=== PATIENT | female | born 1995 | race Caucasian/White ===

== ENCOUNTER 2020-05-30 07:40 | Emergency (ER) | payer OTHER, SELFPAY ==
[2020-05-30] VITALS (7 sets, daily range): BP systolic 113–146; BP diastolic 64–79; PULSE 58–74; RESP 14–20; TEMP 36.9; O2SAT 100
--- NOTE | ~2020-05-30 | XR_ITS ---
EXAMINATION: XR chest 1V portable EXAM DATE: 05/30/2020 08:29 INDICATION: Palpitations. TECHNIQUE: Portable AP frontal chest x-ray was obtained. There is no prior study for comparison. FINDINGS: The lungs are clear. There are no pleural effusions. The cardiomediastinal silhouette is within normal limits. There is no pneumothorax suspected. The bones and soft tissues are unremarkab le. IMPRESSION: No acute cardiopulmonary findings. Reviewed, dictated and finalized at location A. ETIC HEALER
--- NOTE | 2020-05-30 07:57 | ECG_ITS ---
Measurements Intervals [place] Rate: 68 P: 59 AK: 156 QRS: 71 QRSD: 100 T: 29 QT: 385 QTc: 410 Interpretive Statements SINUS RHYTHM INCOMPLETE RIGHT BUNDLE BRANCH BLOCK DELAYED PRECORDIAL R/S TRANSITION BASELINE ARTIFACT- I, II, III, V3 BORDERLINE ECG Electronically Signed On 05-30-2020 7:59:17 TRANSPORTATION CLERK by John Fernandez D.O.
--- NOTE | 2020-05-30 07:57 | ED.CHESTPAIN ---
HPI - Chest Pain General Chief Complaint: Chest Pain Stated Complaint: sob/+covid on 05/20 Time Seen by Provider: 05/30/20 07:45 Source: patient Mode of arrival: ambulatory Limitations: no limitations History of Present Illness HPI narrative: This patient is a 25 year old female who presents for evaluation of heart racing and chest pain. She states she was found to be positive for COVID 19 on 05/20/20. She states she has been doing well, but 2 days ago she started feeling chest tightness. This chest tightness was constant but is resolved. She states she was also having intermittent migraine headaches. She took excederin last night for her headache, and she started having a feeling of heart racing. She checked her heart rate with her smart watch and her heart rate was normal. She continued to feel sensation of heart racing so she came to the ER. She denies chest pain or headache currently. She denies leg swelling or calf pain. She does not take control. Related Data Home Medications Medication Instructions Recorded Confirmed No Home Medications 05/30/20 05/30/20 Allergies Allergy/AdvReac Type Severity Reaction Status Date / Time Penicillins Allergy Hives Verified 05/30/20 07:57 Review of Systems Review of Systems: All systems reviewed & are unremarkable except as noted in HPI and below Constitutional: Constitutional: Denies chills and Denies fever(s) Cardiovascular: Cardiovascular: Reports chest pain and Reports rapid heart rate Respiratory: Respiratory: Denies cough and Reports dyspnea Gastrointestinal: Gastrointestinal: Denies abdominal pain, Denies nausea and Denies vomiting Neurologic: Denies headache(s), Denies focal weakness and Denies numbness Psychiatric: Psychiatric: Reports anxiety PMFSH Past Medical History Medical History (Updated 05/30/20 @ 09:18 by Blanca Medel MD) Patient denies medical problems Surgical History Surgical History (Updated 05/30/20 @ 07:58 by Blanca Medel MD) No pertinent past surgical history Social History Social History (Updated 05/30/20 @ 07:58 by Blanca Medel MD) Smoking status: Never smoker Exam Narrative: Exam Narrative: GENERAL: Well-appearing, well-nourished, and in no acute distress. HEAD: Normocephalic, atraumatic EYES: PERRLA and EOMI, conjunctiva clear without discharge THROAT:Mucous membranes moist, Oropharynx normal without erythema, exudate, peritonsillar swelling or fluctuance NECK: Supple, without lymphadenopathy or mass RESPIRATORY: No respiratory distress, Airway patent, Respirations non-labored, Clear to auscultation without rales, rhonchi or wheeze HEART: Regular rate and rhythm. No murmur heard. Normal peripheral pulses. ABDOMEN: Soft, nontender, nondistended, normal active bowel sounds. No masses. No rebound or guarding, No organomegaly. EXTREMITIES: No edema, normal strength with full range of motion. SKIN: Warm, dry, normal color without rash NEURO: Alert and oriented x3. CN 2-12 grossly intact. No focal deficits. PSYCH: Normal mood and affect. Course Reevaluation(s) Reevaluation #1: I have discussed with patient labs are normal. Her vitals have been unremarkable. She has no further questions before discharge. Date: 05/30/20 Time: 09:16 Vital Signs Vital signs: Vital Signs Pulse Rate 62 05/30/20 07:49 Respiratory Rate 20 05/30/20 07:49 Pulse Oximetry 100 05/30/20 07:49 Temperature 98.4 F 05/30/20 07:55 Pulse Rate 74 05/30/20 09:31 Respiratory Rate 20 05/30/20 09:31 Blood Pressure 113/64 05/30/20 09:31 Pulse Oximetry 100 05/30/20 09:31 MDM - Chest Pain Lab Data Attestation: I reviewed the patient's lab results. Result diagrams: 05/30/20 08:03 05/30/20 08:03 Labs: Lab Results 05/30/20 05/30/20 05/30/20 Range/Units 08:03 08:03 08:03 WBC 4.8 (4.5-10.0) K/mm3 RBC 4.66 (4.2-5.4) M/mm3 Hgb 14.5 (1
[2020-05-30 08:11] LABS: Basophils Percent Auto 0.2 % (0.2-1.2); Eosinophils Percent Auto 0.8 % (0-4.4); Hematocrit 41.6 % (37.0-47.0); Hemoglobin 14.5 g/dL (12.0-15.0); Immature Granulocyte Absolute 0.01 K/mm3 (0.00-0.031); Immature Granulocyte Percent A 0.2 % (0-0.5); Lymphocytes Absolute Auto 1.71 K/mm3 (0.9-3.2); Lymphocytes Percent Auto 35.8 % (18.3-44.2); Mean Corpuscular HGB Conc 34.9 g/dl (32-36); Mean Corpuscular Hemoglobin 31.1 pg (26-34); Mean Corpuscular Volume 89.3 fl (80-100); Mean Platelet Volume 9.8 fl (7.4-10.4); Monocytes Absolute Auto 0.5 K/mm3 (0.1-0.6); Monocytes Percent Auto 11.3 % (2.6-8.5); Neutrophils Absolute Auto 2.5 K/mm3 (1.3-6.7); Neutrophils Percent Auto 51.7 % (45.5-73.1); Platelet Count Result 225 k/mm3 (150-375); Red Blood Count 4.66 M/mm3 (4.2-5.4); Red Cell Distribution Width 12.2 % (11.5-14.5); White Blood Count 4.8 K/mm3 (4.5-10.0)
[2020-05-30 08:21] LABS: INR 0.9; Prothrombin Time 12.7 Seconds (11.1-14.7)
[2020-05-30 08:22] LABS: Partial Thromboplastin Time 28.2 SECONDS (22.3-36.8)
[2020-05-30 08:23] LABS: Alanine Aminotransferase 16 U/L (4-35); Albumin Level 4.4 g/dL (3.5-5.1); Alkaline Phosphatase 44 U/L (38-126); Anion Gap 7 mmol/L (8-16); Aspartate Amino Transferase 24 U/L (14-36); Bilirubin,Total 0.4 mg/dL (0.2-1.3); Blood Urea Nitrogen 12 mg/dL (7-17); Calcium 8.9 mg/dL (8.4-10.2); Carbon Dioxide 28 mmol/L (22-30); Chloride 106 mmol/L (98-107); Estimated CRCL calculation 106 ml/min; Estimated Glomerular Filt Rate > 60; Glucose 95 mg/dL (65-105); Potassium 3.7 mmol/L (3.4-5.0); Sodium 141 mmol/L (137-145)
[2020-05-30 08:26] LABS: D Dimer 0.27 ug/mL (<0.48)
[2020-05-30 08:34] LABS: Troponin I < 0.012 ng/mL (0.000-0.034)
== END 2020-05-30 09:49 | disposition home or self-care (01) ==
PROVIDERS: Emergency Provider General Practice
DX: U07.1 COVID-19 (principal); R00.2 Palpitations; R07.9 Chest pain, unspecified; I45.10 Unspecified right bundle-branch block
CPT/HCPCS: 36415; 71045; 80053; 81025; 83735; 84484; 85025; 85380; 85610; 85730; 93005; 99284